=== PATIENT | female | born 2000 | race Caucasian/White ===

== ENCOUNTER 2021-07-13 06:58 | Observation (INO) ==
[2021-07-13] MEDS ORDERED: LORazepam 2 mg VIAL 1 ml IV PUSH ONE ×4 (07:36→22:32)
[2021-07-13] MEDS ORDERED: Lorazepam PYXIS KEY PRN ×5 (07:36→22:35)
[2021-07-13 07:51] LABS: ABS Lymphocytes 1.7 10^3/ul (1.0-4.8); ABS Monocytes 0.3 10^3/ul (0-0.8); ABS Neutrophils 6.2 10^3/ul (1.5-7.7); Eosinophil % 0.3 %; Hematocrit 40 % (35-47); Lymphocyte % 20.9 %; Mean Corpuscular HGB Conc 35 g/dL (31-36); Mean Corpuscular Hemoglobin 31 pg (27-31); Mean Corpuscular Volume 89 fL (80-97); Mean Platelet Volume 8.3 fL (7.4-10.4); Platelet Count 202 10^3/uL (150-450); Red Blood Count 4.52 10^6 /uL (3.70-4.87); Red Cell Distribution Width 13 % (10-15); White Blood Count 8.3 10^3/uL (3.5-10.8)
[2021-07-13 08:23] LABS: ALT 13 U/L (7-52); AST 15 U/L (13-39); Albumin 4.7 g/dL (3.2-5.2); Alkaline Phosphatase 80 U/L (35-149); Anion Gap 8 mmol/L (2-11); Blood Urea Nitrogen 8 mg/dL (6-24); CO2 Carbon Dioxide 28 mmol/L (22-32); Calcium 9.3 mg/dL (8.6-10.3); Chloride 105 mmol/L (101-111); Globulin 2.4 g/dL (2-4); Glucose 97 mg/dL (70-100); Potassium 4.3 mmol/L (3.5-5.0); Sodium 141 mmol/L (135-145); Total Protein 7.1 g/dL (6.4-8.9); eGFR CKD-EPI 123.4 (>60)
[2021-07-13 08:30] LABS: HCG Pregnancy < 0.60 mIU/mL
[2021-07-13 18:00] LABS: Hepatitis C Antibody Negative (Negative)
[2021-07-13 18:46] LABS: HIV 4th Generation Nonreactive (Nonreactive)
[2021-07-13] MEDS ORDERED: LORazepam 2 mg VIAL 1 ml ONE (18:53)
[2021-07-13] MEDS ORDERED: CENOBAMATE 150 MG PO SCH (21:00)
[2021-07-13] MEDS ORDERED: CENOBAMATE 150 MG PO ONE (21:00)
[2021-07-13] MEDS ORDERED: LORazepam 2 mg VIAL 1 ml IV PUSH PRN (22:35)
[2021-07-14] MEDS ORDERED: Phenytoin 100 mg ER CAP PO SCH (09:00)
[2021-07-14 16:10] VITALS: BP 100/51
== END 2021-07-14 18:21 | disposition home or self-care (01) ==
LOC: EDHOLD 06:58 → ED 06:58 → SUATTDRO 19:36 → MEDTELE 22:10
PROVIDERS: ADMIT Hospitalist; ATTEND Internal Medicine